=== PATIENT | female | born 1935 | race American Indian/Alaskan Native ===

== ENCOUNTER 2017-01-24 17:46 | Emergency (ER) | payer MEDICARE ==
[2017-01-24] MEDS ORDERED: NACL 0.9% 1000 ML 1,000 ML IV ONE (19:41)
[2017-01-24 19:50] LABS: Basophils % (Auto) 1.1 % (0.0-1.8); Eosinophils % (Auto) 2.8 % (0.0-4.3); Hematocrit 38.1 % (30.3-42.9); Hemoglobin 12.5 gm/dl (10.1-14.3); Mean Corpuscular HGB Conc 33 % (30-34); Platelet Count 186 K/mm3 (140-440); Red Blood Count 5.48 M/mm3 (3.65-5.03); Red Cell Distribution Width 16.5 % (13.2-15.2)
[2017-01-24 19:52] LABS: Anion Gap 16 mmol/L; Blood Urea Nitrogen 18 mg/dL (7-17); Calcium 9.2 mg/dL (8.4-10.2); Carbon Dioxide 24 mmol/L (22-30); Chloride 101.9 mmol/L (98-107); Glucose 186 mg/dL (65-100); Potassium 4.3 mmol/L (3.6-5.0); Sodium 138 mmol/L (137-145)
[2017-01-24 20:03] LABS: Mean Corpuscular Hemoglobin 23 pg (28-32); Mean Corpuscular Volume 70 fl (79-97)
[2017-01-24 21:24] LABS: Bilirubin,Urine NEG (Negative); Blood,Urine NEG (Negative); Ketones,Urine TR mg/dL (Negative); Leukocyte Esterase,Urine NEG (Negative); Nitrite,Urine NEG (Negative); Protein,Urine <15 mg/dL mg/dL (Negative); Urobilinogen,Urine < 2.0 mg/dL (<2.0)
--- NOTE | 2017-01-24 22:14 | Cat Scan Report ---
FINAL REPORT PROCEDURE: CT HEAD/BRAIN WO CON TECHNIQUE: Computerized tomography of the head was performed without contrast material. HISTORY: ams COMPARISON: No prior studies are available for comparison. FINDINGS: Visualized portions of the paranasal sinuses and mastoid air cells are clear. Right-sided BINDER [employer]IP[employer]ACH[employer] shunt enters in the frontal region and crosses the midline terminating in the body of the left lateral ventricle. There is moderate hydrocephalus, diffusely. Dilated cavum septum pellucidum et vergae is seen. Cerebellar tonsils are normally positioned. Sulci remain visualized. Prominent diffuse confluent hypodensity is seen in the white matter, likely due to chronic small vessel ischemic changes. No acute intracranial hemorrhage or mass effect is seen. IMPRESSION: Moderate hydrocephalus is seen despite a normally positioned BINDER [employer]IP[employer]ACH[employer] shunt. Correlation with shunt function is recommended. Comparison with any prior head CT exams may be useful.
--- NOTE | 2017-01-24 22:35 | Emergency Department Report ---
HPI - General Chief Complaint: Weakness Time Seen by Provider: 01/24/17 19:24 - HPI HPI: Chief complaint I feel weak Patient brought by family member who stated today she has been feeling very weak , lethargic, not her usual self. Patient has a history of diabetes and a glucose slightly been fluctuating today from 130 to 300. Patient denies any chest pain nausea vomiting shortness of breath. Patient states she actually feels better now. ED Past Medical Hx - Past Medical History Previous Medical History?: Yes Hx Diabetes: Yes - Surgical History Past Surgical History?: No - Social History Smoking Status: Never Smoker Substance Use Type: None - Medications Home Medications: Home Medications Medication Instructions Recorded Confirmed Last Taken Type Insulin Glargine [Lantus VIAL] 10 units SUB-Q QHS units 03/18/16 01/24/17 Unknown Rx Donepezil [Aricept] 10 mg PO QDAY 01/24/17 01/24/17 Unknown History Dorzolamide HCl/Timolol Maleat 1 drop OP QDAY 01/24/17 01/24/17 Unknown History [Dorzolamide-Timolol Eye Drops] Insulin Lispro [HumaLOG VIAL] 19 units SC QDAY 01/24/17 01/24/17 Unknown History Memantine HCl [Namenda] 10 mg PO QDAY 01/24/17 01/24/17 Unknown History Nitrofurantoin [place]/M-Cryst 100 mg PO Q12HR #14 capsule 01/24/17 Unknown Rx [Macrobid CAP] ED Review of Systems ROS: Stated complaint: WEAKNESS /SLOW HEART RATE Other details as noted in HPI Comment: All other systems reviewed and negative Constitutional: no symptoms reported Neurological: weakness Physical Exam - Physical Exam Vital Signs: Vital Signs 01/24/17 01/24/17 18:00 19:29 Temperature 97.8 F 97.7 F Pulse Rate 70 70 Respiratory 16 15 Rate Blood Pressure 130/61 127/61 [Right] O2 Sat by Pulse 98 96 Oximetry Physical Exam: Vital signs reviewed Gen. alert and oriented 3 in no distress Head atraumatic normocephalic Eyes PERR LA EOMI Chest regular rate and rhythm normal S1-S2 lungs clear bilaterally Abdomen soft nondistended Back no point tenderness paravertebral tenderness Neuro no focal deficit. Psych normal mood. ED Course Vital Signs 01/24/17 01/24/17 18:00 19:29 Temperature 97.8 F 97.7 F Pulse Rate 70 70 Respiratory 16 15 Rate Blood Pressure 130/61 127/61 [Right] O2 Sat by Pulse 98 96 Oximetry - Reevaluation(s) Reevaluation #1: 01/25/17 01:28 CT findings reviewed with patient and family members over the phone. I spoke with the physician coroner forensic technician for the patient's neurosurgeon, who verified that the patient's symptoms are likely not related to the moderate hydrocephalus. I explained to the family members of patient's symptoms are likely due to the UTI. I spoke with the hospitalist regarding admitting patient for observation, Dr. Bauer recommended the patient be discharged home. We'll treat with Macrobid and follow up with PCP return to the ER with fever or worsening of symptoms chest pain nausea vomiting shortness of breath. 01/25/17 01:31 ED Medical Decision Making - Lab Data Result diagrams: 01/24/17 19:24 01/24/17 19:24 Critical care attestation.: If time is entered above; I have spent that time in minutes in the direct care of this critically ill patient, excluding procedure time. ED Disposition Clinical Impression: UTI (urinary tract infection), Dehydration Disposition: DC-01 TO HOME OR SELFCARE Is pt being admited?: No Does the pt Need Aspirin: No Condition: Stable Prescriptions: Nitrofurantoin Trego/M-Cryst [Macrobid CAP] 100 mg PO Q12HR #14 capsule Referrals: PRIMARY CARE, [Primary Care Provider] - 3-5 Days
[2017-01-25 01:23] VITALS: BP 117/48
== END 2017-01-25 02:56 | disposition home or self-care (01) ==
LOC: ED 17:46
DX: N39.0 Urinary tract infection, site not specified (principal); E86.0 Dehydration; E11.9 Type 2 diabetes mellitus without complications; Z91.013 Allergy to seafood; Z88.0 Allergy status to penicillin
CPT/HCPCS: 36415; 70450; 80048; 81001; 82962; 85025; 93005; 93010; 96360; 99285; J7030

== ENCOUNTER 2017-03-28 21:16 | Inpatient (IN) | payer MEDICARE ==
--- NOTE | 2017-03-28 22:44 | Emergency Department Report ---
ED Altered Mental Status HPI - General Stated Complaint: AMS Time Seen by Provider: 03/28/17 22:15 Source: EMS Mode of arrival: Stretcher Limitations: Altered Mental Status - History of Present Illness Initial Comments: 82 yo female with a past medical history of dementia and insulin for diabetes presents after complaining of alteration in mental status. Patient presents with her daughter. Daughter states that one week ago patient was in [place] with her brother. Alteration in mental status began then. Patient typically emanates with a cane. When she picked up the patient yesterday she seemed to have more difficulty ambulating. Throughout the day today she was falling asleep a lot and having intermittent periods of confusion. Some decreased appetite reported. No complaints of pain, fever, recent fall or injury. - Related Data Home Medications Medication Instructions Recorded Confirmed Last Taken Donepezil [Aricept] 10 mg PO QDAY 01/24/17 01/24/17 Unknown Dorzolamide HCl/Timolol Maleat 1 drop OP QDAY 01/24/17 01/24/17 Unknown [Dorzolamide-Timolol Eye Drops] Insulin Lispro [HumaLOG VIAL] 19 units SC QDAY 01/24/17 01/24/17 Unknown Memantine HCl [Namenda] 10 mg PO QDAY 01/24/17 01/24/17 Unknown Previous Rx's Medication Instructions Recorded Last Taken Type Insulin Glargine [Lantus VIAL] 10 units SUB-Q QHS units 03/18/16 Unknown Rx Nitrofurantoin Beckham/M-Cryst 100 mg PO Q12HR #14 capsule 01/24/17 Unknown Rx [Macrobid CAP] Allergies Allergy/AdvReac Type Severity Reaction Status Date / Time penicillin G Allergy Unknown Verified 01/24/17 20:50 shellfish derived Allergy Unknown Verified 01/24/17 20:50 ED Review of Systems ROS: Stated complaint: AMS Other details as noted in HPI Comment: All other systems reviewed and negative Other: Constitutional: No fevers chills Eyes: No eye pain ENT: No ear pain Neck: Denies pain Respiratory: Denies cough wheezing shortness of breath Cardiovascular: Denies chest pain, syncope GI: Denies abdominal pain, nausea, vomiting, diarrhea : Denies dysuria Musculoskeletal: Denies back pain Skin: Denies rash, lesions, erythema Neurologic: Denies headache Psychiatric: Denies hallucinations ED Past Medical Hx - Past Medical History Hx Diabetes: Yes - Surgical History Past Surgical History?: Yes Additional Surgical History: Previous back surgery - Social History Smoking Status: Never Smoker Substance Use Type: None - Medications Home Medications: Home Medications Medication Instructions Recorded Confirmed Last Taken Type Insulin Glargine [Lantus VIAL] 10 units SUB-Q QHS units 03/18/16 01/24/17 Unknown Rx Donepezil [Aricept] 10 mg PO QDAY 01/24/17 01/24/17 Unknown History Dorzolamide HCl/Timolol Maleat 1 drop OP QDAY 01/24/17 01/24/17 Unknown History [Dorzolamide-Timolol Eye Drops] Insulin Lispro [HumaLOG VIAL] 19 units SC QDAY 01/24/17 01/24/17 Unknown History Memantine HCl [Namenda] 10 mg PO QDAY 01/24/17 01/24/17 Unknown History Nitrofurantoin [place]/M-Cryst 100 mg PO Q12HR #14 capsule 01/24/17 Unknown Rx [Macrobid CAP] ED Physical Exam - General Limitations: Altered Mental Status - Other Other exam information: General: No limitations, patient is alert in no acute distress Head exam: Atraumatic, normocephalic Eyes exam: Normal appearance, pupils equal reactive to light, ENT: Moist mucous membrane, normal oropharynx Neck exam: Normal inspection, full range of motion, no meningismus nontender Respiratory exam: Clear to auscultation bilateral, no wheezes, rales, crackles Cardiovascular: Normal rate and rhythm, normal heart sounds Abdomen: Soft, nondistended, and nontender, with normal bowel sounds, no rebound, or guarding Extremity: Full range of motion normal inspection no deformity Back: full range of motion, no tenderness Neurologic: Alert, oriented to self only. Does not know the year and thinks she is at her sister's house as opposed to the hospitalcranial nerves intact, equal hand town justice and foot dorsiflexed Psychiatric: normal affect, normal mood Skin: Warm, dry, intact ED Course Vital Signs 03/28/17 21:25 Temperature 98.7 F Pulse Rate 79 Respiratory 16 Rate Blood Pressure 131/60 O2 Sat by Pulse 94 Oximetry - Reevaluation(s) Reevaluation #1: 03/29/17 00:09 IV fluids initiated for mild dehydration as indicated by bun elevation. Positive UTI. Pt is allergic to penicillin. Cultures pending. - Lab Data Result diagrams: 03/28/17 22:51 03/28/17 22:51 Lab Results 03/28/17 03/28/17 03/28/17 Range/Units 22:50 22:51 22:51 WBC 7.0 (4.5-11.0) K/mm3 RBC 5.51 H (3.65-5.03) M/mm3 Hgb 12.2 (10.1-14.3) gm/dl Hct 38.6 (30.3-42.9) % MCV 70 L (79-97) fl MCH 22 L (28-32) pg MCHC 32 (30-34) % RDW 16.1 H (13.2-15.2) % Plt Count 181 (140-440) K/mm3 Lymph % (Auto) 9.4 L (13.4-35.0) % [place] % (Auto) 6.4 (0.0-7.3) % Eos % (Auto) 0.1 (0.0-4.3) % Baso % (Auto) 0.4 (0.0-1.8) % Lymph # 0.7 L (1.2-5.4) K/mm3 [place] # 0.5 (0.0-0.8) K/mm3 Eos # 0.0 (0.0-0.4) K/mm3 Baso # 0.0 (0.0-0.1) K/mm3 Seg Neutrophils % 83.7 H (40.0-70.0) % Seg Neutrophils # 5.9 (1.8-7.7) K/mm3 Sodium 139 (137-145) mmol/L Potassium 4.5 (3.6-5.0) mmol/L Chloride 99.8 (98-107) mmol/L Carbon Dioxide 21 L (22-30) mmol/L Anion Gap 23 mmol/L BUN 29 H (7-17) mg/dL Creatinine 1.0 (0.7-1.2) mg/dL Estimated GFR > 60 ml/min BUN/Creatinine Ratio 29.00 % Glucose 213 H (65-100) mg/dL POC Glucose 194 H (70-105) Calcium 9.9 (8.4-10.2) mg/dL TSH (0.270-4.200) mlU/mL Free T4 (0.76-1.46) ng/dL Urine Color (Yellow) Urine Turbidity (Clear) Urine pH (5.0-7.0) Ur Specific [place] (1.003-1.030) Urine Protein (Negative) mg/dL Urine Glucose (UA) (Negative) mg/dL Urine Ketones (Negative) mg/dL Urine Blood (Negative) Urine Nitrite (Negative) Urine Bilirubin (Negative) Urine Urobilinogen (<2.0) mg/dL Ur Leukocyte Esterase (Negative) Urine WBC (Auto) (0.0-6.0) /HPF Urine RBC (Auto) (0.0-6.0) /HPF U Epithel Cells (Auto) (0-13.0) /HPF Urine Bacteria (Auto) (Negative) /HPF Hyaline Casts /LPF Urine Mucus /HPF 03/28/17 03/28/17 Range/Units 22:51 23:15 WBC (4.5-11.0) K/mm3 RBC (3.65-5.03) M/mm3 Hgb (10.1-14.3) gm/dl Hct (30.3-42.9) % MCV (79-97) fl MCH (28-32) pg MCHC (30-34) % RDW (13.2-15.2) % Plt Count (140-440) K/mm3 Lymph % (Auto) (13.4-35.0) % [place] % (Auto) (0.0-7.3) % Eos % (Auto) (0.0-4.3) % Baso % (Auto) (0.0-1.8) % Lymph # (1.2-5.4) K/mm3 [place] # (0.0-0.8) K/mm3 Eos # (0.0-0.4) K/mm3 Baso # (0.0-0.1) K/mm3 Seg Neutrophils % (40.0-70.0) % Seg Neutrophils # (1.8-7.7) K/mm3 Sodium (137-145) mmol/L Potassium (3.6-5.0) mmol/L Chloride (98-107) mmol/L Carbon Dioxide (22-30) mmol/L Anion Gap mmol/L BUN (7-17) mg/dL Creatinine (0.7-1.2) mg/dL Estimated GFR ml/min BUN/Creatinine Ratio % Glucose (65-100) mg/dL POC Glucose (70-105) Calcium (8.4-10.2) mg/dL TSH 1.960 (0.270-4.200) mlU/mL Free T4 1.61 H (0.76-1.46) ng/dL Urine Color Yellow (Yellow) Urine Turbidity Slightly-cloudy (Clear) Urine pH 5.0 (5.0-7.0) Ur Specific [place] 1.024 (1.003-1.030) Urine Protein 30 mg/dl (Negative) mg/dL Urine Glucose (UA) 50 (Negative) mg/dL Urine Ketones 20 (Negative) mg/dL Urine Blood Neg (Negative) Urine Nitrite Neg (Negative) Urine Bilirubin Neg (Negative) Urine Urobilinogen < 2.0 (<2.0) mg/dL Ur Leukocyte Esterase Neg (Negative) Urine WBC (Auto) 7.0 H (0.0-6.0) /HPF Urine RBC (Auto) 45.0 (0.0-6.0) /HPF U Epithel Cells (Auto) 1.0 (0-13.0) /HPF Urine Bacteria (Auto) 1+ (Negative) /HPF Hyaline Casts 22 /LPF Urine Mucus 2+ /HPF - Medical Decision Making Plan to make this hospital for dementia with acute delirium secondary to UTI with dehydration - Differential Diagnosis dementia, delirium, dehydration, infection, UTI Critical Care Time: No Critical care attestation.: If time is entered above; I have spent that time in minutes in the direct care of this critically ill patient, excluding procedure time. ED Disposition Clinical Impression: UTI (urinary tract infection), Diabetes 1.5, managed as type 2, Dementia, Change in mental status Disposition: 09 OP ADMIT IP TO THIS HOSP Is pt being admited?: Yes Condition: Stable Time of Disposition: 00:11 (Dr harrison/hosp)
[2017-03-28 23:10] LABS: Basophils % (Auto) 0.4 % (0.0-1.8); Eosinophils % (Auto) 0.1 % (0.0-4.3); Hematocrit 38.6 % (30.3-42.9); Hemoglobin 12.2 gm/dl (10.1-14.3); Mean Corpuscular HGB Conc 32 % (30-34); Mean Corpuscular Volume 70 fl (79-97); Platelet Count 181 K/mm3 (140-440); Red Blood Count 5.51 M/mm3 (3.65-5.03); Red Cell Distribution Width 16.1 % (13.2-15.2)
[2017-03-28 23:21] LABS: Mean Corpuscular Hemoglobin 22 pg (28-32)
[2017-03-28 23:28] LABS: Anion Gap 23 mmol/L; Blood Urea Nitrogen 29 mg/dL (7-17); Calcium 9.9 mg/dL (8.4-10.2); Carbon Dioxide 21 mmol/L (22-30); Chloride 99.8 mmol/L (98-107); Glucose 213 mg/dL (65-100); Potassium 4.5 mmol/L (3.6-5.0); Sodium 139 mmol/L (137-145)
[2017-03-28] MEDS ORDERED: NACL 0.9% 500 ML 500 ML IV ONE (23:35)
[2017-03-28 23:55] LABS: Bacteria,Urine 1+ /HPF (Negative); Bilirubin,Urine NEG (Negative); Blood,Urine NEG (Negative); Ketones,Urine 20 mg/dL (Negative); Leukocyte Esterase,Urine NEG (Negative); Mucus,Urine 2+ /HPF; Nitrite,Urine NEG (Negative); Urobilinogen,Urine < 2.0 mg/dL (<2.0)
[2017-03-29] MEDS ORDERED: LEVAQUIN 750MG/150ML 750 MG/150 ML BAG IV ONE (00:08)
[2017-03-29] MEDS ORDERED: ZOFRAN IV PRN (01:27)
[2017-03-29] MEDS ORDERED: TYLENOL PO PRN (01:27)
[2017-03-29 02:12] LABS: Anion Gap 24 mmol/L; BUN/Creatinine Ratio 32.22; Blood Urea Nitrogen 29 mg/dL (7-17); Calcium 9.7 mg/dL (8.4-10.2); Carbon Dioxide 21 mmol/L (22-30); Chloride 99.2 mmol/L (98-107); Glucose 309 mg/dL (65-100); Potassium 4.4 mmol/L (3.6-5.0); Sodium 140 mmol/L (137-145)
[2017-03-29] MEDS: NACL 0.9% 1000 ML 1,000 ML IV SCH (04:55)
[2017-03-29 06:19] LABS: Anion Gap 28 mmol/L; Blood Urea Nitrogen 32 mg/dL (7-17); Calcium 9.4 mg/dL (8.4-10.2); Carbon Dioxide 16 mmol/L (22-30); Chloride 99.4 mmol/L (98-107); Glucose 417 mg/dL (65-100); Potassium 4.4 mmol/L (3.6-5.0); Sodium 139 mmol/L (137-145)
[2017-03-29] MEDS: NOVOLOG SUB-Q SCH ×3 (08:24→17:35)
--- NOTE | 2017-03-29 08:46 | History and Physical Report ---
CHIEF COMPLAINT: Change in mental status. HISTORY OF PRESENT ILLNESS: The patient is an 82-year-old female presenting with change in mental status after the daughter found her to be getting confused and also falling asleep alot. There was no history of shortness of breath, chest pain, fever or chills. There was also no history of nausea or vomiting; however, the daughter found that there was decreased appetite, brought the patient to the Emergency Room for evaluation. PAST MEDICAL HISTORY: Pertinent for diabetes mellitus. PAST SURGICAL HISTORY: Pertinent for back surgery. FAMILY HISTORY: Noncontributory. SOCIAL HISTORY: The patient lives with the family. Does not smoke, does not drink alcohol and does not use illicit drugs. MEDICATIONS: The patient is on Lantus insulin 10 units subcutaneous at night, Aricept 10 mg by mouth daily, dorzolamide and timolol eye drops one drop to the affected eye daily, Humalog insulin lispro 90 units subcutaneous daily, Namenda 10 units orally 10 mg by mouth daily, nitrofurantoin, Macrobid 100 mg by mouth every 12 hours. ALLERGIES: The patient is allergic to PENICILLIN and SHELLFISH. REVIEW OF SYSTEMS: CONSTITUTIONAL: There is no fever, no chills, no diaphoresis. HEENT: There is no headache or sore throat. CARDIOVASCULAR SYSTEM: There is no chest pain, orthopnea. RESPIRATORY SYSTEM: There is no shortness of breath or cough. GASTROINTESTINAL SYSTEM: There is no nausea, no vomiting, no abdominal pain, diarrhea or constipation. There is decreased appetite. NEUROLOGICAL SYSTEM: There is change in mental status and also denies excessive sleepiness. MUSCULOSKELETAL SYSTEM: There is no joint pain or swelling. DERMATOLOGICAL SYSTEM: There is no skin rash or itching. GENITOURINARY SYSTEM: There is no dysuria, hematuria, or flank pain. Rest of system review is normal. PHYSICAL EXAMINATION: GENERAL: At the time of exam, the patient was found to be alert and oriented to person, place, and not in acute distress. VITAL SIGNS: Shows normal temperature with pulse of 75, respirations 26, blood pressure 130/53, O2 sat of 98% on oxygen by Venturi mask. HEENT: Exam shows pupils to be equal, round, reactive to light and accommodation. Extraocular muscles are intact. NECK: Supple with no JVD or carotid bruit. CARDIOVASCULAR SYSTEM: Showed normal first and second heart sounds with no gallops or murmurs. RESPIRATORY SYSTEM: Showed good air entry on both sides of the lung with no abnormal breath sounds. GASTROINTESTINAL SYSTEM: Show abdomen to be full, soft, nontender with no organomegaly or rigidity. NEUROLOGIC: Exam shows no focal deficit. MUSCULOSKELETAL SYSTEM: Show no joint swelling or tenderness. DERMATOLOGICAL SYSTEM: Show no skin rash. GENITOURINARY SYSTEM: Showing no costovertebral angle tenderness. PERTINENT LABORATORY AND IMAGING STUDIES: The patient has CBC done with normal white count, normal hemoglobin, and normal hematocrit. CBC differential showed elevated, segmented neutrophils 83.7% with no significant bands. Chemistry shows normal electrolytes with slightly elevated BUN of 29, normal creatinine and GFR of greater than 60. The patient's glucose level was elevated with a value of 213. TSH level was normal, but free T4 was elevated with a value of 1.61. The patient's urinalysis shows negative leukocyte esterase, urine wbc of 7, negative urine nitrites, 1+ bacteria. IMAGING STUDIES: No imaging studies were done at this time. DIAGNOSES: 1. Altered mental status. 2. Weakness. 3. Dehydration. PLAN: The patient will be admitted to medical floor on telemetry. Vital signs will be monitored with telemetry protocol. Deep venous thrombosis prophylaxis will be through sequential compressive device and the patient will have physical therapy consult in the morning for muscle strengthening for weakness. The patient will have basic metabolic panel checked in the morning and will be on Tylenol 650 mg by mouth every 4 hours for fever, headache, and also will be on heparin 5000 units q.12 for deep venous thrombosis prophylaxis. The patient will be on IV normal saline at 75 mL an hour and will be on IV Zofran 4 mg every 8 hours for nausea and vomiting. The patient's home medications will be reconciled and accepted accordingly. JOB# [id number] OCN/NTS
[2017-03-29] MEDS: MACROBID PO SCH ×2 (09:50→21:57)
[2017-03-29] MEDS: NAMENDA PO SCH (09:51)
[2017-03-29] MEDS: ARICEPT PO SCH (09:51)
[2017-03-29] MEDS: HEPARIN SUB-Q SCH ×2 (09:51→21:58)
[2017-03-29] MEDS ORDERED: NON-FORMULARY (Dorzolamide Hcl/Timolol Maleat [Dorzolamide-Timolol Eye Drops] 1 DROP) OP SCH (10:00)
[2017-03-29] MEDS ORDERED: INSULIN LISPRO SC SCH (10:00)
[2017-03-29] MEDS ORDERED: NOVOLOG SUB-Q ONE (13:00)
[2017-03-29] MEDS ORDERED: NACL 0.9% 1000 ML 1,000 ML IV ONE (13:00)
[2017-03-29 13:53] LABS: ISTAT Base Excess -6; ISTAT HCO3 19.2; ISTAT PCO2 31.2 (35-45); ISTAT PH 7.397 (7.35-7.45); ISTAT PO2 40 (80-105); ISTAT SO2 76; ISTAT TCO2 20
[2017-03-29] MEDS ORDERED: D50W (25GM) Syringe IV ONE (21:34)
[2017-03-29] MEDS ORDERED: NON-FORMULARY (Insulin Glargine 10 UNITS) SUB-Q SCH (22:00)
[2017-03-29] MEDS ORDERED: LEVEMIR SUB-Q SCH ×2 (22:00)
[2017-03-30] MEDS: NACL 0.9% 1000 ML 1,000 ML IV SCH (01:57)
--- NOTE | 2017-03-30 07:41 | Progress Note ---
Assessment and Plan Assessment and plan: Patient is a 82 yo female with a past medical history of dementia and insulin for diabetes,Dementia but normaly able to have meaningful conversation, presents with daughter reporting that she is more confused, initally thought to be hypoglycemia, the family gave her some glucose but no correction. Also they noted she has over the past few days been having difficulty ambulating with a cane as she normally dose and worsening periods of confusion, decreased appetitie. They deny any fever, diarrhea, shortness of breath, nausea, vomiting or fall. Acute metabolic encephalopathy likely secondary to UTI * Continue treatment of underlying disease with antibiotics. * Thyroid checked and normal * Check CT Brain Acute cystitis * Follow urine culture, no growth till date. Dementia-worsening with a baseline * Continue Aricept and anticipate improvement to her baseline with correction of blood sugar treatment of UTI Generalized weakness * PT OT evaluation and treat, ensure adequate by mouth intake Diabetes mellitus-uncontrolled * We'll adjust insulin accordingly for better control. Metabolic acidosis likely secondary to dehydration and control diabetes * Anticipate improvement with correction of hydration and diabetes Dehydration. * Gentle hydration show adequate by mouth intake DVT and GI prophylaxis Plan of care discussed with family in detail History Interval history: Patient seen and examined, in no acute distress, intermittent confusion, persists but family states its close to baseline Hospitalist Physical - Physical exam Narrative exam: VITAL SIGNS: Reviewed. GENERAL: The patient appeared well nourished and normally developed. Vital signs as documented. HEAD: No signs of head trauma. EYES: Pupils are equal. Extraocular motions intact. EARS: Hearing grossly intact. MOUTH: Oropharynx is normal. NECK: No adenopathy, no JVD. CHEST: Chest with clear breath sounds bilaterally. No wheezes, rales, or rhonchi. CARDIAC: Regular rate and rhythm. S1 and S2, without murmurs, gallops, or rubs. VASCULAR: No Edema. Peripheral pulses normal and equal in all extremities. ABDOMEN: Soft, without detectable tenderness. No sign of distention. No rebound or guarding, and no masses palpated. Bowel Sounds normal. MUSCULOSKELETAL: Good range of motion of all major joints. Extremities without clubbing, cyanosis or edema. NEUROLOGIC EXAM: Alert and oriented x 2, person and place. No focal sensory or strength deficits. Speech normal. Follows commands. PSYCHIATRIC: Mood normal. SKIN: No rash or lesions. - Constitutional Vitals: Temp Pulse Resp BP Pulse Ox 97.9 F 69 20 120/53 97 03/30/17 05:23 03/30/17 05:23 03/30/17 05:23 03/30/17 05:23 03/30/17 05:23 Results - Labs CBC & Chem 7: 03/28/17 22:51 03/29/17 22:49 Labs: Laboratory Last Values WBC 7.0 K/mm3 (4.5-11.0) 03/28/17 22:51 RBC 5.51 M/mm3 (3.65-5.03) H 03/28/17 22:51 Hgb 12.2 gm/dl (10.1-14.3) 03/28/17 22:51 Hct 38.6 % (30.3-42.9) 03/28/17 22:51 MCV 70 fl (79-97) L 03/28/17 22:51 MCH 22 pg (28-32) L 03/28/17 22:51 MCHC 32 % (30-34) 03/28/17 22:51 RDW 16.1 % (13.2-15.2) H 03/28/17 22:51 Plt Count 181 K/mm3 (140-440) 03/28/17 22:51 Lymph % (Auto) 9.4 % (13.4-35.0) L 03/28/17 22:51 [place] % (Auto) 6.4 % (0.0-7.3) 03/28/17 22:51 Eos % (Auto) 0.1 % (0.0-4.3) 03/28/17 22:51 Baso % (Auto) 0.4 % (0.0-1.8) 03/28/17 22:51 Lymph # 0.7 K/mm3 (1.2-5.4) L 03/28/17 22:51 [place] # 0.5 K/mm3 (0.0-0.8) 03/28/17 22:51 Eos # 0.0 K/mm3 (0.0-0.4) 03/28/17 22:51 Baso # 0.0 K/mm3 (0.0-0.1) 03/28/17 22:51 Seg Neutrophils % 83.7 % (40.0-70.0) H 03/28/17 22:51 Seg Neutrophils # 5.9 K/mm3 (1.8-7.7) 03/28/17 22:51 POC ABG pH 7.397 (7.35-7.45) 03/29/17 12:33 POC ABG pCO2 31.2 (35-45) L 03/29/17 12:33 POC ABG pO2 40 (80-105) L 03/29/17 12:33 POC ABG HCO3 19.2 03/29/17 12:33 POC ABG Total CO2 20 03/29/17 12:33 POC ABG O2 Sat 76 03/29/17 12:33 POC ABG Base Excess -6 03/29/17 12:33 FiO2 21 % 03/29/17 12:33 Sodium 139 mmol/L (137-145) 03/29/17 05:15 Potassium 4.4 mmol/L (3.6-5.0) 03/29/17 05:15 Chloride 99.4 mmol/L (98-107) 03/29/17 05:15 Carbon Dioxide 16 mmol/L (22-30) L 03/29/17 05:15 Anion Gap 28 mmol/L 03/29/17 05:15 BUN 32 mg/dL (7-17) H 03/29/17 05:15 Creatinine 1.0 mg/dL (0.7-1.2) 03/29/17 05:15 Estimated GFR > 60 ml/min 03/29/17 05:15 BUN/Creatinine Ratio 32.00 % 03/29/17 05:15 Glucose 159 mg/dL (65-100) H 03/29/17 22:49 POC Glucose 320 (70-105) H 03/30/17 01:50 Calcium 9.4 mg/dL (8.4-10.2) 03/29/17 05:15 TSH 1.960 mlU/mL (0.270-4.200) 03/28/17 22:51 Free T4 1.61 ng/dL (0.76-1.46) H 03/28/17 22:51 Urine Color Yellow (Yellow) 03/28/17 23:15 Urine Turbidity Slightly-cloudy (Clear) 03/28/17 23:15 Urine pH 5.0 (5.0-7.0) 03/28/17 23:15 Ur Specific [place] 1.024 (1.003-1.030) 03/28/17 23:15 Urine Protein 30 mg/dl mg/dL (Negative) 03/28/17 23:15 Urine Glucose (UA) 50 mg/dL (Negative) 03/28/17 23:15 Urine Ketones 20 mg/dL (Negative) 03/28/17 23:15 Urine Blood Neg (Negative) 03/28/17 23:15 Urine Nitrite Neg (Negative) 03/28/17 23:15 Urine Bilirubin Neg (Negative) 03/28/17 23:15 Urine Urobilinogen < 2.0 mg/dL (<2.0) 03/28/17 23:15 Ur Leukocyte Esterase Neg (Negative) 03/28/17 23:15 Urine WBC (Auto) 7.0 /HPF (0.0-6.0) H 03/28/17 23:15 Urine RBC (Auto) 45.0 /HPF (0.0-6.0) 03/28/17 23:15 U Epithel Cells (Auto) 1.0 /HPF (0-13.0) 03/28/17 23:15 Urine Bacteria (Auto) 1+ /HPF (Negative) 03/28/17 23:15 Hyaline Casts 22 /LPF 03/28/17 23:15 Urine Mucus 2+ /HPF 03/28/17 23:15
--- NOTE | 2017-03-30 07:42 | Progress Note ---
Assessment and Plan Assessment and plan: Patient is a 82 yo female with a past medical history of dementia and insulin for diabetes,Dementia but normaly able to have meaningful conversation, presents with daughter reporting that she is more confused, initally thought to be hypoglycemia, the family gave her some glucose but no correction. Also they noted she has over the past few days been having difficulty ambulating with a cane as she normally dose and worsening periods of confusion, decreased appetitie. They deny any fever, diarrhea, shortness of breath, nausea, vomiting or fall. Acute metabolic encephalopathy likely secondary to UTI * Continue treatment of underlying disease with antibiotics. * Thyroid checked and normal Acute cystitis * Follow urine culture. Dementia-worsening with a baseline * Continue Aricept and anticipate improvement to her baseline with correction of blood sugar treatment of UTI Generalized weakness * PT OT evaluation and treat, ensure adequate by mouth intake Diabetes mellitus-uncontrolled * We'll adjust insulin accordingly for better control. Metabolic acidosis likely secondary to dehydration and control diabetes * Anticipate improvement with correction of hydration and diabetes Dehydration. * Gentle hydration show adequate by mouth intake DVT and GI prophylaxis Plan of care discussed with family in detail History Interval history: Patient seen and examined, in no acute distress, but disoriented to date, family reports that she is normally more cohesive but has a managed care director Due to dementia Hospitalist Physical - Physical exam Narrative exam: VITAL SIGNS: Reviewed. GENERAL: The patient appeared well nourished and normally developed. Vital signs as documented. HEAD: No signs of head trauma. EYES: Pupils are equal. Extraocular motions intact. EARS: Hearing grossly intact. MOUTH: Oropharynx is normal. NECK: No adenopathy, no JVD. CHEST: Chest with clear breath sounds bilaterally. No wheezes, rales, or rhonchi. CARDIAC: Regular rate and rhythm. S1 and S2, without murmurs, gallops, or rubs. VASCULAR: No Edema. Peripheral pulses normal and equal in all extremities. ABDOMEN: Soft, without detectable tenderness. No sign of distention. No rebound or guarding, and no masses palpated. Bowel Sounds normal. MUSCULOSKELETAL: Good range of motion of all major joints. Extremities without clubbing, cyanosis or edema. NEUROLOGIC EXAM: Alert and oriented x 2, person and place. No focal sensory or strength deficits. Speech normal. Follows commands. PSYCHIATRIC: Mood normal. SKIN: No rash or lesions. - Constitutional Vitals: Temp Pulse Resp BP Pulse Ox 97.9 F 69 20 120/53 97 03/30/17 05:23 03/30/17 05:23 03/30/17 05:23 03/30/17 05:23 03/30/17 05:23 Results - Labs CBC & Chem 7: 03/28/17 22:51 03/29/17 22:49 Labs: Laboratory Last Values WBC 7.0 K/mm3 (4.5-11.0) 03/28/17 22:51 RBC 5.51 M/mm3 (3.65-5.03) H 03/28/17 22:51 Hgb 12.2 gm/dl (10.1-14.3) 03/28/17 22:51 Hct 38.6 % (30.3-42.9) 03/28/17 22:51 MCV 70 fl (79-97) L 03/28/17 22:51 MCH 22 pg (28-32) L 03/28/17 22:51 MCHC 32 % (30-34) 03/28/17 22:51 RDW 16.1 % (13.2-15.2) H 03/28/17 22:51 Plt Count 181 K/mm3 (140-440) 03/28/17 22:51 Lymph % (Auto) 9.4 % (13.4-35.0) L 03/28/17 22:51 [place] % (Auto) 6.4 % (0.0-7.3) 03/28/17 22:51 Eos % (Auto) 0.1 % (0.0-4.3) 03/28/17 22:51 Baso % (Auto) 0.4 % (0.0-1.8) 03/28/17 22:51 Lymph # 0.7 K/mm3 (1.2-5.4) L 03/28/17 22:51 [place] # 0.5 K/mm3 (0.0-0.8) 03/28/17 22:51 Eos # 0.0 K/mm3 (0.0-0.4) 03/28/17 22:51 Baso # 0.0 K/mm3 (0.0-0.1) 03/28/17 22:51 Seg Neutrophils % 83.7 % (40.0-70.0) H 03/28/17 22:51 Seg Neutrophils # 5.9 K/mm3 (1.8-7.7) 03/28/17 22:51 POC ABG pH 7.397 (7.35-7.45) 03/29/17 12:33 POC ABG pCO2 31.2 (35-45) L 03/29/17 12:33 POC ABG pO2 40 (80-105) L 03/29/17 12:33 POC ABG HCO3 19.2 03/29/17 12:33 POC ABG Total CO2 20 03/29/17 12:33 POC ABG O2 Sat 76 03/29/17 12:33 POC ABG Base Excess -6 03/29/17 12:33 FiO2 21 % 03/29/17 12:33 Sodium 139 mmol/L (137-145) 03/29/17 05:15 Potassium 4.4 mmol/L (3.6-5.0) 03/29/17 05:15 Chloride 99.4 mmol/L (98-107) 03/29/17 05:15 Carbon Dioxide 16 mmol/L (22-30) L 03/29/17 05:15 Anion Gap 28 mmol/L 03/29/17 05:15 BUN 32 mg/dL (7-17) H 03/29/17 05:15 Creatinine 1.0 mg/dL (0.7-1.2) 03/29/17 05:15 Estimated GFR > 60 ml/min 03/29/17 05:15 BUN/Creatinine Ratio 32.00 % 03/29/17 05:15 Glucose 159 mg/dL (65-100) H 03/29/17 22:49 POC Glucose 320 (70-105) H 03/30/17 01:50 Calcium 9.4 mg/dL (8.4-10.2) 03/29/17 05:15 TSH 1.960 mlU/mL (0.270-4.200) 03/28/17 22:51 Free T4 1.61 ng/dL (0.76-1.46) H 03/28/17 22:51 Urine Color Yellow (Yellow) 03/28/17 23:15 Urine Turbidity Slightly-cloudy (Clear) 03/28/17 23:15 Urine pH 5.0 (5.0-7.0) 03/28/17 23:15 Ur Specific [place] 1.024 (1.003-1.030) 03/28/17 23:15 Urine Protein 30 mg/dl mg/dL (Negative) 03/28/17 23:15 Urine Glucose (UA) 50 mg/dL (Negative) 03/28/17 23:15 Urine Ketones 20 mg/dL (Negative) 03/28/17 23:15 Urine Blood Neg (Negative) 03/28/17 23:15 Urine Nitrite Neg (Negative) 03/28/17 23:15 Urine Bilirubin Neg (Negative) 03/28/17 23:15 Urine Urobilinogen < 2.0 mg/dL (<2.0) 03/28/17 23:15 Ur Leukocyte Esterase Neg (Negative) 03/28/17 23:15 Urine WBC (Auto) 7.0 /HPF (0.0-6.0) H 03/28/17 23:15 Urine RBC (Auto) 45.0 /HPF (0.0-6.0) 03/28/17 23:15 U Epithel Cells (Auto) 1.0 /HPF (0-13.0) 03/28/17 23:15 Urine Bacteria (Auto) 1+ /HPF (Negative) 03/28/17 23:15 Hyaline Casts 22 /LPF 03/28/17 23:15 Urine Mucus 2+ /HPF 03/28/17 23:15
--- NOTE | 2017-03-30 09:05 | Cat Scan Report ---
CT HEAD WITHOUT CONTRAST: HISTORY: Ultra mental status. Compared to 01/24/17. The right frontal ventricular catheter crosses midline to terminate in the left lateral ventricle. Ventriculomegaly is unchanged. Moderate chronic white matter changes are stable. No evidence for hemorrhage, mass, extra-axial fluid collection or large area of acute ischemia. The calvarium is intact. IMPRESSION: No acute intracranial process. Chronic finding as outlined above which are unchanged since 01/24/17.
[2017-03-30] MEDS: NOVOLOG SUB-Q SCH ×4 (10:45→17:34)
[2017-03-30] MEDS: HEPARIN SUB-Q SCH ×2 (10:57→21:15)
[2017-03-30] MEDS: MACROBID PO SCH ×2 (10:57→21:16)
[2017-03-30] MEDS: NAMENDA PO SCH (10:57)
[2017-03-30] MEDS: ARICEPT PO SCH (10:57)
[2017-03-30 12:04] LABS: ISTAT Base Excess -3; ISTAT HCO3 21.3; ISTAT PCO2 34.5 (35-45); ISTAT PO2 62 (80-105); ISTAT SO2 92; ISTAT TCO2 22
[2017-03-30] MEDS ORDERED: NOVOLOG SUB-Q SCH (17:27)
[2017-03-30] MEDS ORDERED: DUONEB *Not for PRN Use IH SCH (20:00)
[2017-03-30] MEDS: LEVEMIR SUB-Q SCH (21:16)
[2017-03-30] MEDS ORDERED: PROVENTIL IH PRN (22:20)
[2017-03-31 04:54] VITALS: BP 127/68
--- NOTE | 2017-03-31 07:32 | XRay Report ---
PORTABLE CHEST INDICATION: Hypoxia. COMPARISON: 03/17/2016 FINDINGS: Portable, frontal chest radiograph now demonstrates left lung base hazy opacity with obscured left hemidiaphragm, representing fluid/consolidation/atelectasis. Clear remainder lungs. Stable cardiomediastinal silhouette, aortic knob calcifications, EKG leads, possible ENGINEERING DOCUMENT CONTROL CLERK shunt coursing over the right hemithorax medially and various bony degenerative changes including mild thoracic dextrocurvature, left shoulder calcific tendinosis and partially imaged lumbar fusion hardware. CONCLUSION: New left lower lung hazy opacity with various other stable findings, as above. Please correlate. Thank you for the opportunity to participate in this patient's care.
[2017-03-31] MEDS: DUONEB *Not for PRN Use IH SCH ×2 (07:35→13:36)
[2017-03-31] MEDS: LEVEMIR SUB-Q SCH ×2 (08:08→17:58)
--- NOTE | 2017-03-31 10:07 | Discharge Summary ---
Providers - Providers Date of Admission: 03/29/17 01:24 Attending physician: PRATIBHA DYER MD 03/29/17 01:29 Physical Therapy Evaluation and Treat [CONS] Routine Comment: Reason For Exam: WEAKNESS 03/29/17 12:35 Occupational Therapy Evaluate and Treat [CONS] Routine Comment: Reason For Exam: debility Hospitalization Reason for admission: acute encephalopathy Condition: Stable Hospital course: Patient is a 82 yo female with a past medical history of dementia and insulin for diabetes,Dementia but normaly able to have meaningful conversation, presents with daughter reporting that she is more confused, initally thought to be hypoglycemia, the family gave her some glucose but no correction. Also they noted she has over the past few days been having difficulty ambulating with a cane as she normally dose and worsening periods of confusion, decreased appetitie. They deny any fever, diarrhea, shortness of breath, nausea, vomiting or fall. Acute metabolic encephalopathy likely secondary to UTI * Cultures revealed Streptococcus not group D. Patient improved to her normal baseline. Acute cystitis Dementia-worsening with a baseline * Continue Aricept and anticipate improvement to her baseline with correction of blood sugar treatment of UTI Generalized weakness * PT OT evaluation and treat, ensure adequate by mouth intake Diabetes mellitus-uncontrolled * We adjusted insulin accordingly for better control. Metabolic acidosis likely secondary to dehydration and control diabetes * Anticipate improvement with correction of hydration and diabetes Dehydration. * Gentle hydration show adequate by mouth intake Patient improved and was subsequently discharged in stable condition. Disposition: [id number] HOME [facility] Time spent for discharge: 35 MINS Core Measure Documentation - Palliative Care Palliative Care/ Comfort Measures: Not Applicable - Core Measures Any of the following diagnoses?: none - VTE Discharge Requirements Deep Vein Thrombosis/Pulmonary Embolism Present on Admission: No Exam - Physical Exam Narrative exam: VITAL SIGNS: Reviewed. GENERAL: The patient appeared well nourished and normally developed. Vital signs as documented. HEAD: No signs of head trauma. EYES: Pupils are equal. Extraocular motions intact. EARS: Hearing grossly intact. MOUTH: Oropharynx is normal. NECK: No adenopathy, no JVD. CHEST: Chest with clear breath sounds bilaterally. No wheezes, rales, or rhonchi. CARDIAC: Regular rate and rhythm. S1 and S2, without murmurs, gallops, or rubs. VASCULAR: No Edema. Peripheral pulses normal and equal in all extremities. ABDOMEN: Soft, without detectable tenderness. No sign of distention. No rebound or guarding, and no masses palpated. Bowel Sounds normal. MUSCULOSKELETAL: Good range of motion of all major joints. Extremities without clubbing, cyanosis or edema. NEUROLOGIC EXAM: Alert and oriented x 2, person and place. No focal sensory or strength deficits. Speech normal. Follows commands. PSYCHIATRIC: Mood normal. SKIN: No rash or lesions. - Constitutional Vitals: Temp Pulse Resp BP Pulse Ox 98.0 F 45 L 18 127/68 96 03/31/17 04:32 03/31/17 04:32 03/31/17 04:32 03/31/17 04:32 03/31/17 04:32 Plan Activity: advance as tolerated, fall precautions Diet: low fat, diabetic Special Instructions: record daily BP diary, record blood sugar diary Additional Instructions: FOLLOW WITH PRIMARY Passenger Screener Follow up with: PRIMARY CARE, [Referring] - 3-5 Days
[2017-03-31] MEDS: ARICEPT PO SCH (11:01)
[2017-03-31] MEDS: NAMENDA PO SCH (11:01)
[2017-03-31] MEDS: HEPARIN SUB-Q SCH (11:07)
[2017-03-31] MEDS: MACROBID PO SCH (11:07)
== END 2017-03-31 18:48 | disposition home health service (06) | DRG 689 ==
LOC: ED 21:16 → 4A 03-29 01:24
PROVIDERS: ADMIT Internal Medicine; ATTEND Internal Medicine
PROC: 4A033R1 Measurement of Arterial Saturation, Peripheral, Percutaneous Approach (ICD-10-PCS; principal; 2017-03-29)
DX: N30.00 Acute cystitis without hematuria (principal); G93.41 Metabolic encephalopathy; E87.2 Acidosis; F03.90 Unspecified dementia, unspecified severity, without behavioral disturbance, psychotic disturbance, mood disturbance, and anxiety; E86.0 Dehydration; E11.65 Type 2 diabetes mellitus with hyperglycemia; Z88.0 Allergy status to penicillin; Z91.013 Allergy to seafood; Z79.4 Long term (current) use of insulin; R09.02 Hypoxemia
CPT/HCPCS: 36415; 36600; 70450; 71010; 80048; 81001; 82803; 82947; 82962; 84439; 84443; 85025; 87086; 94640; 94760; 96365; 99285; G8978-GP; G8979-GP; G8987-GO; G8988-GO; J1644; J1815; J1818; J1956; J7030; J7040